=== PATIENT | male | born 1970 | race Caucasian/White ===

== ENCOUNTER 2017-09-22 09:34 | Day surgery (SDC) | payer OTHER ==
[~2017-09-22] VITALS: Ht 193 cm; Wt 106.6 kg
[~2017-09-22 09:34] MED LIST: DULO60CA6 PO
[2017-09-22] MEDS ORDERED: LACTATED RINGERS 1,000 ML IV ONE (09:40)
[2017-09-22] MEDS ORDERED: LACTATED RINGERS 1,000 ML IV STA (09:42)
[2017-09-22 10:05] VITALS: BP 139/102
[2017-09-22] MEDS ORDERED: PROPOFOL INJECTION 50 ML IV ONE ×3 (10:13→10:53)
[2017-09-22] MEDS ORDERED: MIDAZOLAM 2 MG/2 ML (VERSED) VIAL ONE ×2 (10:13→10:20)
[2017-09-22] MEDS ORDERED: HURRICAINE EXT TUBE (BENZOCAINE) ONE (10:19)
[2017-09-22] MEDS ORDERED: HURRICAINE EXT TUBE (BENZOCAINE) XX ONE (10:45)
--- NOTE | 2017-09-22 11:10 | Conscious Sedation/ASA ---
Conscious Sedation Pre-Proced Time Reviewed: 10:00 ASA Class: 2 Airway Mallampati Classification: ([place] appropriate class) I. II. III, IV Lungs Heart ASA score ASA 1: a normal healthy patient ASA 2: a patient with a mild systemic disease (mid diabetes, controlled hypertension, obesity ASA 3: a patient with a severe systemic disease that limits activity (angina , COPD, prior Myocardial infarction) ASA 4: a patient with an incapacitating disease that is a constant threat to life (CHF, renal failure) ASA 5: a moribund patient not expected to survive 24 hrs. (ruptured aneurysm) ASA 6: a declared brain patient whose organs are being harvested. For emergent operations, add the letter E after the classification Grade 2 Sedation Plan: Analgesia, Amnesia, Plan communicated to team members, Discussed options with patient/fam, Discussed risks with patient/fam Note The patient is an appropriate candidate to undergo the planned procedure, sedation, and anesthesia. The patient immediately re-assessed prior to indication. MAGEN ENNIS MD Sep 22, 2017 11:10 am
--- NOTE | 2017-09-22 11:11 | Progress Note-Pre Operative ---
Pre-Operative Progress Note H&P Reviewed The H&P was reviewed, patient examined and no changes noted. Date Seen by Provider: Sep 22, 2017 Time Seen by Provider: 10:00 Date H&P Reviewed: Sep 22, 2017 Time H&P Reviewed: 10:00 Pre-Operative Diagnosis: hematamesis, screening colonoscopy MAGEN ENNIS MD Sep 22, 2017 11:11 am
[2017-09-22] MEDS ORDERED: HYDROcodone/APAP 5 MG/325 MG (LORTAB) TAB PO PRN (11:15)
[2017-09-22] MEDS ORDERED: ONDANSETRON 4 MG/2 ML (SDV) Z0FRAN IV PRN (11:15)
[2017-09-22] MEDS ORDERED: morphine INJ 10 MG/ML 1ML (SYR OR VIAL) IV PRN (11:15)
[2017-09-22] MEDS ORDERED: ACETAMINOPHEN 325 MG TABLET PO PRN (11:15)
--- NOTE | 2017-09-22 11:15 | Progress Note-Post Operative ---
Post-Operative Progess Note Surgeon (s)/Dextrine Mixer (s) Surgeon MAGEN ENNIS MD Dextrine Mixer: none Pre-Operative Diagnosis hematamesis, screening colonoscopy Post-Operative Diagnosis reflux esophagitis(class C) with linear ulcerations, small HH(2cm), moderate gastritis. mild chronic stage 1 ext and int hemorrhoids. Procedure & Operative Findings Date of Procedure 09/22/17 Procedure Performed/Findings EGD with bx. Colonoscopy. Anesthesia Type MAC Estimated Blood Loss Estimated blood loss (mL): minimal Specimens/Packing Specimens Removed antrum, GE corrinexn MAGEN ENNIS MD Sep 22, 2017 11:15 am
[2017-09-22] MEDS ORDERED: SUCR1TAB36 PO (11:16)
[2017-09-22] MEDS ORDERED: PANT40TA2 PO (11:16)
--- NOTE | 2017-09-22 11:17 | Discharge Inst-Surgical ---
D/C Lap Instructions-KIDO New, Converted, or Re-Newed RX: RX on Chart Follow Up PRN Activity as tolerated High Fiber Diet 25g or more per day Avoid Alcohol, Caffeine, Spicy [place] and Acid foods. Drink 64 fluid oz or more of fluids per day. Symptoms to Report: Fever over 101 degree F, Nausea/Vomiting If any problems/questions: Contact your physician or go to Emergency Room MAGEN ENNIS MD Sep 22, 2017 11:17 am
[2017-09-22 11:30] VITALS: BP 137/92
[2017-09-22 11:55] VITALS: BP 141/98
[2017-09-22 12:05] VITALS: BP 141/98
--- NOTE | 2017-09-22 13:30 | Anesthesia-General Post-Op ---
MAC Patient Condition Mental Status/LOC: Same as Preop Cardiovascular: Satisfactory Nausea/Vomiting: Absent Respiratory: Satisfactory Pain: Controlled Complications: Absent Post Op Complications Complications None Follow Up Care/Instructions Patient Instructions None needed. Anesthesiology Discharge Order Discharge Order Patient is doing well, no complaints, stable vital signs, no apparent adverse anesthesia problems. No complications reported per nursing. SUSY FINNEGAN CRNA Sep 22, 2017 13:30
--- NOTE | 2017-09-22 16:38 | OPERATIVE REPORT ---
DATE OF SERVICE: 09/22/2017 PREOPERATIVE DIAGNOSES: Hematemesis, screening colonoscopy. POSTOPERATIVE DIAGNOSES: Erosive esophagitis class C, small hiatal hernia approximately 2 cm in size, moderate severity gastritis, chronic stage I external and internal hemorrhoids. PROCEDURE: EGD with biopsy, colonoscopy. SURGEON: Magen Ennis MD ANESTHESIA: Monitored anesthesia care. ESTIMATED BLOOD LOSS: Minimal. FINDINGS: EGD, erosive reflux esophagitis class C, no strictures or esophageal varices. Small hiatal hernia approximately 2 cm in size, moderate severity gastritis, pylorus and duodenum appeared normal. Colonoscopy, chronic stage I external and internal hemorrhoids. Prostate gland was palpable and appeared normal. Remainder of the rectum and colon were normal. DISPOSITION: The patient tolerated the procedure well. INDICATIONS: The patient is a 48-year-old male with continued episodes of epigastric pain as well as nausea and vomiting as well as dry heaving. He has had several episodes of hematemesis as well. He did have some laboratory work, which also did show elevated liver enzymes and an ultrasound was performed, which showed fatty liver infiltration; however, note that the gallbladder was negative for stones. He does report drinking a significant amount of alcohol as well as chewing tobacco. He also does take in spicy, greasy and acidic foods. He also is in need of a screening colonoscopy. He does have a remote family history of colon cancer with maternal grandmother being diagnosed in her 80s. DESCRIPTION OF PROCEDURE: The patient was brought to the endoscopy suite, laid in the left lateral decubitus position. After adequate IV pain and sedating medications and monitored anesthesia care, the mouthpiece was applied. The endoscope was then placed in the mouth visualizing the pharynx and hypopharyngeal region. Vocal cords, epiglottis and vallecula were identified and appeared to be normal. The endoscope was then gently intubated in the esophageal opening and esophagus insufflated. The endoscope was then advanced to the first, second and third portion of the esophagus at the level of the GE junction, erosive reflux esophagitis class C identified. There were linear ulcerations identified as well. There were no strictures or esophageal varices identified. A biopsy was taken with forceps with visualization of good hemostasis. The endoscope was then advanced into the stomach and then endoscope retroflexed visualizing a small hiatal hernia approximately 2 cm in size. There was a moderate severity gastritis; however, no formal ulcerations, polyps or any neoplasms. Biopsy was then taken of the stomach antrum with forceps with visualization of good hemostasis. The endoscope was then advanced to the pylorus and the first and second portion of the duodenum, which appeared normal with no distal obstructions. The endoscope was then slowly withdrawn with taking a second look and suctioning of residual air with no additional findings. The patient tolerated this portion of procedure well. We will recommend the necessary lifestyle and diet accommodation including cessation of chewing tobacco, alcoholic beverages, caffeinated beverages as well as spicy, greasy and acidic foods taken in moderation. He also needs to take a small and more frequent meals and avoid eating at night. We will start him on Protonix 40 mg daily as well as Carafate 1 gram q.i.d. for the next 2 weeks, then on a p.r.n. basis. Under the same anesthesia, we then proceeded with the colonoscopy portion of the procedure. A digital rectal examination was performed, which revealed mild chronic stage I external and internal hemorrhoids, not actively edematous nor inflamed and no bleeding. Normal sphincter tone was felt and there were no palpable masses. The endoscope was then intubated to the anus and rectum, gently insufflated. The endoscope was then advanced through the valves of Yun of the rectum with no polyps or any neoplasms identified. We then proceeded through the sigmoid colon where no diverticulosis identified. The endoscope was then advanced to the remainder of the descending, transverse, and ascending colon to the cecum. These segments were normal as well. The endoscope was then slowly withdrawn while taking a second look and suctioning of residual air with no additional findings. The patient tolerated the procedure well. We will recommend continued medical management with high-fiber diet with at least 30 grams of fiber per day as well as copious amounts of water daily to promote soft stools on a daily basis. From our standpoint, he does not need another colonoscopy for another 10 years; however, sooner if he becomes symptomatic. Job ID: [id number] DocumentID: [id number] Dictated Date: 09/22/2017 11:34:34 Explosive Operator Grenade Date: 09/22/2017 16:38:09 Dictated By: MAGEN ENNIS MD
== END 2017-09-22 12:05 | disposition home or self-care (01) ==
LOC: ENDO 09:34
PROVIDERS: ATTEND Surgery
DX: Z12.11 Encounter for screening for malignant neoplasm of colon (principal); K64.0 First degree hemorrhoids; K22.10 Ulcer of esophagus without bleeding; K44.9 Diaphragmatic hernia without obstruction or gangrene; K29.70 Gastritis, unspecified, without bleeding

== ENCOUNTER → 2022-05-25 | Outpatient (CLI) | payer OTHER ==
[~2022-05-25] MED LIST changes: -DULO60CA6 PO; +DULO60CA7 PO; +PANT40TA2 PO; +SUCR1TAB36 PO
--- NOTE | 2022-05-25 09:55 | Diagnostic Imaging Report ---
EXAMINATION: Magnetic resonance imaging of the right knee without intravenous contrast DATE: May 25, 2022. COMPARISON: None. INDICATION: 52-year-old male, right knee pain after injury several months ago. TECHNIQUE: Multiplanar, multisequence non contrast enhanced MR imaging was accomplished. FINDINGS: MENISCI: There is an oblique tear of the body, posterior horn, and posterior root attachment of the medial meniscus. There is 3 mm medial meniscal extrusion. The lateral meniscus is intact. LIGAMENTS AND TENDONS: The anterior and posterior cruciate ligaments are intact. The medial collateral ligament is intact. The iliotibial band, mid third lateral capsular ligament, fibular collateral ligament, biceps femoris tendon and conjoined tendon are intact. The quadriceps tendon and patella ligament are intact. JOINT: There are broad areas of approximately 75% cartilage loss of the mid weightbearing portions of the medial femoral condyle and medial tibial plateau. The patellofemoral and lateral compartment cartilage appears intact. There is no knee joint effusion, prominent synovitis, or intra-articular body. BONE: There is a nondisplaced subchondral fracture of the medial femoral condyle with the fracture line best demonstrated on coronal PD sequence image 18 and sagittal PD sequence image 8. There is associated marrow edema. The additional bone marrow signal is unremarkable. 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 There is mild soft tissue edema superficial to the site of the fracture. IMPRESSION: 1. Oblique tear involving the body, posterior horn, and posterior root attachment of the medial meniscus with 3 mm medial meniscal extrusion. 2. Intact lateral meniscus. 3. Intact anterior and posterior cruciate ligaments. Additional ligaments and tendons are intact. 4. Nondisplaced subchondral fracture of the medial femoral condyle. This potentially could be fatigue or insufficiency related. 5. Moderate to severe medial compartment osteoarthritis without knee joint effusion. 6. Traore's cyst. Dictated by: Dictated on workstation # [id number]
== END ==
LOC: RAD 07:36
PROVIDERS: ATTEND Nurse Practitioner Family
DX: M17.11 Unilateral primary osteoarthritis, right knee (principal); M71.21 Synovial cyst of popliteal space [Baker], right knee; S72.8X1A Other fracture of right femur, initial encounter for closed fracture
CPT/HCPCS: 73721